=== PATIENT | female | born 1975 | race Caucasian/White ===

== ENCOUNTER 2017-05-31 15:18 | Emergency (ER) | payer MEDICAID ==
[~2017-05-31] VITALS: Ht 157.5 cm; Wt 70.3 kg
[2017-05-31 15:24] VITALS: Ht 157.5 cm; Wt 70.3 kg
[2017-05-31 18:10] VITALS: BP 125/72
== END 2017-05-31 18:10 | disposition home or self-care (01) ==
LOC: ED 15:18
DX: S70.01XA Contusion of right hip, initial encounter (principal); S20.112A Abrasion of breast, left breast, initial encounter; S40.812A Abrasion of left upper arm, initial encounter; S20.312A Abrasion of left front wall of thorax, initial encounter; S50.311A Abrasion of right elbow, initial encounter; S20.411A Abrasion of right back wall of thorax, initial encounter; W22.8XXA Striking against or struck by other objects, initial encounter; Y93.89 Activity, other specified; Y92.89 Other specified places as the place of occurrence of the external cause; Y99.8 Other external cause status
CPT/HCPCS: 90715; J1885